=== PATIENT | male | born 1995 | race Caucasian/White ===

== ENCOUNTER 2025-06-28 11:12 | Emergency (ER) | payer BC, SELFPAY ==
[2025-06-28 11:14] VITALS: BP 145/84
--- NOTE | 2025-06-28 12:31 | ED.GENMED ---
History of Present Illness
General
Chief Complaint: Skin Problem
Source: patient
Exam Limitations: none
Time Seen by Provider: 06/28/25 12:06
History of Present Illness
History of Present Illness:
30yoM with no significant past medical history presenting with his significant other for evaluation of bilateral lower leg redness. Symptoms began over a week ago. He reports erythema and discomfort to the anterior lower legs near the ankle
regions. Area is painful and somewhat itchy. He denies any trauma or new exposures. He works outside on [employer]. He was seen by urgent care earlier this week and was started on doxycycline for presumed cellulitis. He has been taking the
antibiotics for 3 to 4 days. The right leg seems improved but the left leg is unchanged. He had chills a few days ago but this resolved spontaneously. No fevers. He is otherwise feeling well.
Phy Exam
General Physical Exam
General Presentation: well appearing and no apparent distress
General Skin: warm and dry
General Habitus: normal
General Mental: alert
ENT Exam
ENT Exam: normocephalic
Pulmonary Exam
Pulmonary Exam: no respiratory distress
Neurological Exam
Neurological Exam: alert
Hi Coma Scale
Eye Opening: Spontaneous
Verbal Response: Oriented
Motor Response: Obeys Commands
GCS Total Score: 15
Skin Exam
Skin Exam: warm/dry and other (Localized erythema/warmth noted to anterior lower legs. Clearly demarcated directly above sock line. No circumferential erythema. No calf tenderness or pitting edema. 2+ DP pulses bilaterally.)
Psychiatric Exam
Psychiatric Exam: normal mood/affect
Course
Orders/Labs/Results
Orders:
Orders
06/28/25 12:51
Complete Blood Count/With Diff Urgent
Comprehensive Metabolic Panel Urgent
06/28/25 12:51
06/28/25 12:51
Vital Signs
Initial and Last Documented VS:
Initial Vital Signs
Temp Pulse Resp BP Pulse Ox
98.6 F 75 20 145/84 97
06/28/25 11:14 06/28/25 11:14 06/28/25 11:14 06/28/25 11:14 06/28/25 11:14
Last Documented Vital Signs
Temp Pulse Resp BP Pulse Ox
98.6 F 69 18 135/58 100
06/28/25 11:14 06/28/25 14:15 06/28/25 14:15 06/28/25 14:15 06/28/25 14:15
MDM/Problems Addressed
Differential Diagnosis Includes:
30yoM here with bilateral leg redness >1 week. Diagnosed with cellulitis at urgent care. On doxycycline x 3-4 days without improvement. No f/c. VSS. Patient well appearing in no distress. There is erythema noted on anterior lower legs bilaterally.
Area of redness is well demarcated above sock line. Lower extremities neurovascularly intact. Differential diagnosis includes: venous stasis, erythema nodosum, less likely cellulitis, no clinical evidence of DVT
Labs obtained which are unremarkable including normal white count and renal function. Discussed with patient that bilateral cellulitis is extremely rare and given lack of systemic symptoms/leukocytosis, do not feel additional abx are warranted. He
does admit that he has been on his feet more this week. Suspect venous stasis. He was advised to elevate the legs and wear compression stockings. He was advised to f/u with PCP and ED return precautions reviewed. Patient in agreement with plan and
was discharged in stable condition.
*Pulse Oximetry
SaO2: 97
Oxygen Mode of Delivery: Room air
Patient hypoxic: no
*Critical Care Note
Total Time (30-74mins, 75-104mins- exclusive of procedures): Not Applicable
ED Attending Note
-
Portions of this chart may have been created with voice recognition software.� Occasional wrong word or��sound alike� substitutions may have occurred due to the inherent limitations of voice recognition software.
Discharge Plan
Departure
Patient Disposition: Home (Routine Discharge)
Date of Disposition: 06/28/25
Time of Disposition: 13:44
Patient with high blood pressure during this ER visit?: Yes
Discharge Problem:
Erythema of lower extremity
Instructions: Cellulitis (skin infection) in adults (DC)
Referrals:
[facility] [Provider Group]
NONE,* [Family Provider, Internal Medicine]
Activity Restrictions/Additional Instructions:
Finish your antibiotics. Elevate your legs and wear compressing stockings to help with swelling.
Please follow-up with a family doctor. Return to the ER with any new or worsening symptoms including spreading redness or fevers.
Interventions
Interventions:
*Risk Screen - Suicide Last Done: 06/28/25 11:14
*General Assessment Last Done: 06/28/25 11:14
*Neglect/Abuse Screening Last Done: 06/28/25 11:14
*Nursing Disposition Last Done: 06/28/25 14:15
ED-Skin Assessment Last Done: 06/28/25 14:17
Discharge Date and Time
Discharge Date/Time: 06/28/25 14:16
Print Language: ESTONIAN
[2025-06-28 12:58] LABS: Hematocrit 45.2 % (39.0-52.0); Hemoglobin 15.0 g/dL (13.0-18.0); Mean Corp Hgb Conc. 33.2 g/dL (33.0-37.0); Mean Corpuscular Volume 81.3 fL (80.0-94.0); Nucleated Red Blood Cells % 0 % (-); Platelet Count 227 10^3/uL (130-400); Red Cell Dist. Width 13.2 % (11.5-14.5)
[2025-06-28 13:23] LABS: ALT (SGPT) 43 U/L (0-50); AST (SGOT) 31 U/L (17-59); Albumin 4.6 g/dl (3.5-5.0); Alkaline Phosphatase 89 U/L (38-126); Blood Urea Nitrogen 11 mg/dl (9-20); Calcium 9.5 mg/dl (8.4-10.2); Carbon Dioxide 27 mmol/L (22-30); Chloride 103 mmol/L (98-107); Glucose 97 mg/dl (70-99); Potassium 4.0 mmol/L (3.5-5.1); Sodium 137 mmol/L (135-145); Total Protein 7.6 g/dl (6.3-8.2); eGFR > 60.00
[2025-06-28 14:15] VITALS: BP 135/58
== END 2025-06-28 14:16 | disposition home or self-care (01) ==
LOC: EMR 11:12
PROVIDERS: Physician Assistant; EMERGENCY PHYSICIAN Emergency Medicine
DX: L53.9 Erythematous condition, unspecified (principal); R03.0 Elevated blood-pressure reading, without diagnosis of hypertension
CPT/HCPCS: 99283; 80053; 85025